=== PATIENT | female | born 1960 | race Caucasian/White ===

== ENCOUNTER → 2024-11-29 13:21 | Outpatient (REF) | payer OTHER, SELFPAY | LOC: WDC 13:21 | PROVIDERS: ATTENDING PHYSICIAN Family Medicine | DX: Z12.31 Encounter for screening mammogram for malignant neoplasm of breast (principal) | CPT/HCPCS: 77063; 77067 ==

== ENCOUNTER 2025-09-15 06:07 | Day surgery (SDC) | payer OTHER, SELFPAY ==
[2025-09-15 10:02] VITALS: BMI 24.1
[2025-09-15 10:03] VITALS: BMI 24.1
[2025-09-15 10:06] VITALS: BP 121/88
[2025-09-15 11:52] VITALS: BP 101/74
[2025-09-15 12:00] VITALS: BP 99/76
[2025-09-15 12:15] VITALS: BP 100/73
== END 2025-09-15 12:40 | disposition home or self-care (01) ==
LOC: SDS 06:07
PROVIDERS: ATTENDING PHYSICIAN Internal Medicine Gastroenterology
DX: Z12.11 Encounter for screening for malignant neoplasm of colon (principal); D12.3 Benign neoplasm of transverse colon; K64.0 First degree hemorrhoids; Z86.0101 Personal history of adenomatous and serrated colon polyps; Z98.890 Other specified postprocedural states
CPT/HCPCS: 45385; 45380; 88305